=== PATIENT | male | born 1965 | race Caucasian/White ===

== ENCOUNTER 2017-07-15 15:58 | Emergency (ER) | payer OTHER, BC ==
[2017-07-15 16:14] VITALS: BP 141/86; PULSE 86; TEMP 98.4; BMI 33.9
--- NOTE | 2017-07-15 16:16 | PDOC ---
History of Present Illness - General Chief Complaint: Injury Stated Complaint: FALL/ LT HAND INJURY Time Seen by Provider: 07/15/17 16:15 History Source: Patient Exam Limitations: No Limitations - History of Present Illness Initial Comments: 07/15/17 16:30 51-year-old male who is right hand dominant with a history of hyperlipidemia presents to the emergency department complaining of left wrist, neck/low back pain status post fall approximately 2h prior to his arrival to the emergency department. Patient states he slipped and fell back but was able to break his fall with the outstretched of his left hand. Patient denies any LOC, head injuries, headache, dizziness, lightheadedness, upper back pain, chest pain, shortness of breath, abdominal pains, bladder/bowel dysfunction, extremity numbness or tingling sensation. Occurred: reports: just prior to arrival Upper Extremity Pain Location: left: wrist Past History - Past Medical History Allergies/Adverse Reactions: Allergies Allergy/AdvReac Type Severity Reaction Status Date / Time No Known Allergies Allergy Verified 07/15/17 16:15 Other medical history: DENIES. - Suicide/Smoking/Psychosocial Hx Smoking History: Never smoked Hx Alcohol Use: No Drug/Substance Use Hx: No Substance Use Type: None Review of Systems - Review of Systems Able to Perform ROS?: Yes Comments:: 07/15/17 16:32 CONSTITUTIONAL: Absent: fever, chills, diaphoresis, generalized weakness, malaise, loss of appetite HEENT: Absent: rhinorrhea, nasal congestion, throat pain, throat swelling, difficulty swallowing, mouth swelling, ear pain, eye pain, visual Changes CARDIOVASCULAR: Absent: chest pain, loss of consciousness, palpitations, irregular heart rate, peripheral edema RESPIRATORY: Absent: cough, shortness of breath, dyspnea with exertion, orthopnea, wheezing, stridor, hemoptysis GASTROINTESTINAL: Absent: abdominal pain, abdominal distension, nausea, vomiting, diarrhea, constipation, melena, hematochezia GENITOURINARY: Absent: dysuria, frequency, urgency, hesitancy, hematuria, flank pain, genital pain MUSCULOSKELETAL: Absent: myalgia, arthralgia, joint swelling SKIN: Absent: rash, itching, pallor HEMATOLOGIC/IMMUNOLOGIC: Absent: easy bleeding, easy bruising, lymphadenopathy, frequent infections ENDOCRINE: Absent: unexplained weight gain, unexplained weight loss, heat intolerance, cold intolerance NEUROLOGIC: Absent: headache, focal weakness or paresthesias, dizziness, unsteady gait, seizure, mental status changes, bladder or bowel incontinence PSYCHIATRIC: Absent: anxiety, depression, suicidal or homicidal ideation, hallucinations. Left wrist pain, Right sided neck pain Right sided back pain Is the patient limited Czech proficient: No *Physical Exam - Vital Signs Last Vital Signs Temp Pulse Resp BP Pulse Ox 98.4 F 86 18 141/86 98 07/15/17 16:12 07/15/17 16:12 07/15/17 16:12 07/15/17 16:12 07/15/17 16:12 - Physical Exam Comments: 07/15/17 16:32 GENERAL: Well developed, well nourished. Awake and alert. No acute distress. HEENT: Normocephalic, atraumatic. PERRLA, EOMI. No conjunctival pallor. Sclera are non- icteric. Moist mucous membranes. Oropharynx is clear. NECK: Supple. Full ROM. No JVD. Carotid pulses 2+ and symmetric, without bruits. No thyromegaly. No lymphadenopathy. CARDIOVASCULAR: Regular rate and rhythm. No murmurs, rubs, or gallops. Distal pulses are 2+ and symmetric. PULMONARY: No evidence of respiratory distress. Lungs clear to auscultation bilaterally. No wheezing, rales or rhonchi. ABDOMINAL: Soft. Non-tender. Non-distended. No rebound or guarding. No organomegaly. Normoactive bowel sounds. MUSCULOSKELETAL Normal range of motion at all joints. No bony deformities or tenderness. No CVA tenderness. EXTREMITIES: Excluding left wrist No cyanosis. No clubbing. No edema. No calf tenderness. SKIN: Warm and dry. Normal capillary refill. No rashes. No jaundice. NEUROLOGICAL: Alert, awake, appropriate. Cranial nerves 2-12 intact. No deficits to light touch and temperature in face, upper extremities and lower extremities. No motor deficits in the in face, upper extremities and lower extremities. Normoreflexic in the upper and lower extremities. Normal speech. Toes are down- going bilaterally. Gait is normal without ataxia. PSYCHIATRIC: Cooperative. Good eye contact. Appropriate mood and affect. Left wrist: Limited range of motion due to pain, slight swelling to the medial aspect, 2+ radial pulse, negative obvious deformities Left hand: Full range of motion, negative obvious deformity, no swelling noted, capillary refill less than 2 seconds Left elbow: Full range of motion, negative pain, negative obvious deformity, negative swelling ED Treatment Course - RADIOLOGY Radiology Studies Ordered: Category Date Time Status WRIST W/HAND-LEFT* [RAD] Stat Radiology 07/15/17 16:15 Ordered Radiograph Interpretation: 07/15/17 17:13 Xray: C spine; NEg LS spine; neg Left hand neg fx/dislocations *DC/Admit/Observation/Transfer Diagnosis at time of Disposition: Strain of neck muscle Qualifiers: Encounter type: initial encounter Qualified Code(s): S16.1XXA - Strain of muscle, fascia and tendon at neck level, initial encounter; S16.1XXA - Strain of muscle, fascia and tendon at neck level, initial encounter Strain of lumbar region Qualifiers: Encounter type: initial encounter Qualified Code(s): S39.012A - Strain of muscle, fascia and tendon of lower back, initial encounter; S39.012A - Strain of muscle, fascia and tendon of lower back, initial encounter Sprain of left wrist Qualifiers: Encounter type: initial encounter Qualified Code(s): S63.502A - Unspecified sprain of left wrist, initial encounter; S63.502A - Unspecified sprain of left wrist, initial encounter - Discharge Dispostion Condition at time of disposition: Stable Admit: No - Patient Instructions Printed Discharge Instructions: Whiplash, Low Back Pain, DI for Wrist Sprain Additional Instructions: Ice; 20 mins on alternating with 20 mins off for 48 hours while awake. Rest Elevate Follow up with your orthopedic surgeon or the one listed on the discharge form. Return to the ER for severe/persistent/worsening symptoms, extremity numbness/ tingling sensation.
== END 2017-07-15 17:23 | disposition home or self-care (01) ==
LOC: JERFT 15:58
DX: S63.502A Unspecified sprain of left wrist, initial encounter (principal); S16.1XXA Strain of muscle, fascia and tendon at neck level, initial encounter; S39.012A Strain of muscle, fascia and tendon of lower back, initial encounter; W01.0XXA Fall on same level from slipping, tripping and stumbling without subsequent striking against object, initial encounter; Y93.H3 Activity, building and construction; Y92.69 Other specified industrial and construction area as the place of occurrence of the external cause; Y99.0 Civilian activity done for income or pay
CPT/HCPCS: 72050-TC; 72100-TC; 73110-TC-LT; 73130-TC-LT; 99281-25